=== PATIENT | female | born 1945 | race Caucasian/White ===

== ENCOUNTER 2017-06-13 23:40 | Emergency (ER) | payer OTHER, MEDICARE ==
[~2017-06-13] VITALS: Ht 154.9 cm; Wt 96.3 kg
[~2017-06-13 23:40] MED LIST: ALLOPURINOL100 MG PO; AMLODIPINE BESY10 MG PO; ASPIRIN325 MG PO; CARDURA1 M1 PO; CLOPIDOGREL75 MG PO; DOXAZOSIN MESYLA2 MG PO; FERROUS SULFAT325 MG PO; FUROSEMIDE20 MG PO; FUROSEMIDE40 MG PO; IRON325 MG PO; LASIX40 MG PO; LIPITOR40 MG PO; LISINOPRIL10 MG PO; LISINOPRIL20 MG PO; LOPRESSOR50 MG PO; METHOCARBAMOL500 MG PO; METOPROLOL SUCC25 MG PO; NAPROXEN500 MG PO; NEXIUM40 MG PO; NITROSTAT0.4 MG SL; PREDNISONE20 MG PO; STOOL SOFTENER100 M1 PO; TOPROL XL25 MG PO; TRADJENTA5 MG PO
[2017-06-13 23:59] LABS: HEMATOCRIT 30.6 % (36.0-46.0); MCH 29.9 PG (29.0-34.0); MCHC 32.7 G/DL (30.0-36.0); MCV 91.6 FL (83-99); PLATELET COUNT 195 K/uL (156-360); RBC DIS.WIDTH-SD 50.1 % (39-53); RED BLOOD COUNT 3.34 M/uL (3.80-5.20); WHITE BLOOD COUNT 9.3 K/uL (4.1-10.2)
[2017-06-14 00:12] LABS: ALBUMIN 3.9 g/dL (3.2-4.8); CHLORIDE 106 mEq/L (99-109); POTASSIUM 4.1 mEq/L (3.7-5.4); SODIUM 142 mEq/L (136-147)
[2017-06-14 00:15] LABS: GLUCOSE 127 mg/dL (70-99)
[2017-06-14 00:16] LABS: TOTAL BILIRUBIN 0.5 mg/dL (0.0-1.0)
[2017-06-14 00:18] LABS: ALKALINE PHOSPHATASE 87 IU/L (3-129)
[2017-06-14 00:19] LABS: CREATININE 1.4 mg/dL (0.6-1.3); GFR ESTIMATE (CALCULATED) 39 mL/min/; UREA NITROGEN (BUN) 28 mg/dL (9-23)
[2017-06-14 00:20] LABS: AST (GOT) 18 IU/L (2-34)
[2017-06-14 00:21] LABS: ALT (GPT) 14 IU/L (3-49)
[2017-06-14 00:26] LABS: APPEARANCE SL.HAZY ((CLEAR)); BILIRUBIN NEGATIVE; BLOOD MODERATE; COLOR YELLOW ((YELLOW)); GLUCOSE (STRIP) NEGATIVE; KETONES NEGATIVE; LEUKOCYTES LARGE; NITRITE NEGATIVE; PROTEIN (STRIP) 30; SPECIFIC GRAVITY 1.017 (1.000-1.030)
[2017-06-14 00:59] LABS: BACTERIA 2+ /HPF; EPITHELIAL CELLS 2+ /HPF; MUCUS RARE /LPF; RED BLOOD CELLS 15-20 /HPF (0-5); UCUL ADDED? YES; WHITE BLOOD CELLS TNTC /HPF (0-5)
[2017-06-14] MEDS ORDERED: KEFLEX500 MG PO (04:05)
[2017-06-14] MEDS ORDERED: ZOFRAN4 MG PO (04:05)
[2017-06-14] MEDS ORDERED: PERCOCET 5/31 TABLET PO (04:05)
[2017-06-14 04:38] VITALS: BP 115/41
== END 2017-06-14 04:40 | disposition home or self-care (01) ==
LOC: EME 23:40
DX: N13.6 Pyonephrosis (principal); I13.0 Hypertensive heart and chronic kidney disease with heart failure and stage 1 through stage 4 chronic kidney disease, or unspecified chronic kidney disease; E11.22 Type 2 diabetes mellitus with diabetic chronic kidney disease; N18.3 Chronic kidney disease, stage 3 (moderate); I50.9 Heart failure, unspecified; K21.9 Gastro-esophageal reflux disease without esophagitis; J45.909 Unspecified asthma, uncomplicated; Z79.82 Long term (current) use of aspirin; Z87.891 Personal history of nicotine dependence; Z85.9 Personal history of malignant neoplasm, unspecified; Z91.040 Latex allergy status
CPT/HCPCS: 74176; 80053; 81003; 85027; 87086; 99281; 99284; J0696

== ENCOUNTER 2017-07-01 03:25 | Observation (INO) | payer OTHER, MEDICARE ==
[~2017-07-01] VITALS: Ht 157.5 cm; Wt 93.3 kg
[~2017-07-01 03:25] MED LIST changes: +KEFLEX500 MG PO; +PERCOCET 5/31 TABLET PO; +ZOFRAN4 MG PO
[2017-07-01 04:06] LABS: HEMATOCRIT 28.5 % (36.0-46.0); HEMOGLOBIN 9.4 G/DL (11.9-15.5); MCH 29.1 PG (29.0-34.0); MCV 88.2 FL (83-99); PLATELET COUNT 213 K/uL (156-360); RBC DIS.WIDTH-CV 14.4 % (11.8-14.6); RBC DIS.WIDTH-SD 46.6 % (39-53); RED BLOOD COUNT 3.23 M/uL (3.80-5.20); WHITE BLOOD COUNT 11.9 K/uL (4.1-10.2)
[2017-07-01 04:18] LABS: ALBUMIN 3.3 g/dL (3.2-4.8)
[2017-07-01 04:19] LABS: CHLORIDE 102 mEq/L (99-109); POTASSIUM 3.3 mEq/L (3.7-5.4); SODIUM 139 mEq/L (136-147)
[2017-07-01 04:21] LABS: GLUCOSE 73 mg/dL (70-99); TOTAL PROTEIN 7.4 g/dL (6.4-8.3)
[2017-07-01 04:23] LABS: TOTAL BILIRUBIN 0.8 mg/dL (0.0-1.0)
[2017-07-01 04:24] LABS: ALKALINE PHOSPHATASE 70 IU/L (3-129)
[2017-07-01 04:25] LABS: CREATININE 1.2 mg/dL (0.6-1.3); GFR ESTIMATE (CALCULATED) 47 mL/min/
[2017-07-01 04:26] LABS: AST (GOT) 11 IU/L (2-34); UREA NITROGEN (BUN) 15 mg/dL (9-23)
[2017-07-01 04:27] LABS: ALT (GPT) 8 IU/L (3-49)
[2017-07-01 04:28] LABS: LIPASE 38 U/L (1.0-51.0)
[2017-07-01 04:29] LABS: TROP-I INTERPRETATION NEGATIVE; TROPONIN-I 0.01 ng/mL (0.0-0.30)
[2017-07-01 08:56] VITALS: BP 133/56
[2017-07-01] MEDS ORDERED: PANTOPRAZOLE SO40 MG PO (09:10)
[2017-07-01] MEDS ORDERED: GLIMEPIRIDE2 MG PO (09:11)
[2017-07-01 09:33] LABS: HDL CHOLESTEROL 27 MG/DL (Desirable>=50); LDL CHOLESTEROL 37 mg/dL (Desirable<100); NON-HDL CHOLESTEROL 47 mg/dL (Desirable<160); TOTAL CHOLESTEROL 74 mg/dL (Desirable<200); TRIGLYCERIDES 48 MG/DL (Normal: <150)
[2017-07-01 10:05] LABS: TROP-I INTERPRETATION NEGATIVE; TROPONIN-I 0.01 ng/mL (0.0-0.30)
[2017-07-01 11:41] VITALS: BP 172/67
[2017-07-01 15:32] LABS: TROP-I INTERPRETATION NEGATIVE; TROPONIN-I < 0.01 ng/mL (0.0-0.30)
== END 2017-07-01 15:30 | disposition home or self-care (01) ==
LOC: EME → EDBD 03:25 → EME 03:25 → EDOF 07:25 → ENRESERV 07:27 → 4SOUTH 08:36
PROVIDERS: Emergency Medicine; Hospitalist
DX: R07.9 Chest pain, unspecified (principal); I25.10 Atherosclerotic heart disease of native coronary artery without angina pectoris; Z95.5 Presence of coronary angioplasty implant and graft; I48.91 Unspecified atrial fibrillation; D64.9 Anemia, unspecified; Z79.01 Long term (current) use of anticoagulants; I10 Essential (primary) hypertension; E11.9 Type 2 diabetes mellitus without complications; E78.5 Hyperlipidemia, unspecified; Z79.02 Long term (current) use of antithrombotics/antiplatelets; Z79.82 Long term (current) use of aspirin; Z79.84 Long term (current) use of oral hypoglycemic drugs; Z91.040 Latex allergy status; Z87.891 Personal history of nicotine dependence
CPT/HCPCS: 71045; 71275; 80053; 80061; 83690; 83880; 84484; 85027; 85379; 93005; 94640; 99281; 99285; G0378; J1940; S0028

== ENCOUNTER 2017-08-27 21:03 | Emergency (ER) | payer OTHER, MEDICARE ==
[~2017-08-27] VITALS: Ht 154.9 cm; Wt 91.0 kg
[~2017-08-27 21:03] MED LIST changes: +GLIMEPIRIDE2 MG PO; +PANTOPRAZOLE SO40 MG PO
[2017-08-27 23:03] LABS: HEMATOCRIT 30.1 % (36.0-46.0); HEMOGLOBIN 9.5 G/DL (11.9-15.5); MCH 28.2 PG (29.0-34.0); MCHC 31.6 G/DL (30.0-36.0); MCV 89.3 FL (83-99); PLATELET COUNT 215 K/uL (156-360); RBC DIS.WIDTH-CV 15.9 % (11.8-14.6); RBC DIS.WIDTH-SD 51.7 % (39-53); RED BLOOD COUNT 3.37 M/uL (3.80-5.20)
[2017-08-27 23:40] LABS: CHLORIDE 105 mEq/L (99-109); POTASSIUM 3.7 mEq/L (3.7-5.4); SODIUM 142 mEq/L (136-147)
[2017-08-27 23:42] LABS: GLUCOSE 88 mg/dL (70-99)
[2017-08-27 23:46] LABS: CREATININE 1.2 mg/dL (0.6-1.3); GFR ESTIMATE (CALCULATED) 47 mL/min/
[2017-08-27 23:47] LABS: UREA NITROGEN (BUN) 21 mg/dL (9-23)
[2017-08-27] MEDS ORDERED: ULTRAM50 MG PO (23:51)
[2017-08-28 00:11] VITALS: BP 156/54
== END 2017-08-28 00:18 | disposition home or self-care (01) ==
LOC: EME 21:03
PROVIDERS: Emergency Medicine
DX: R25.2 Cramp and spasm (principal); D64.9 Anemia, unspecified; I12.9 Hypertensive chronic kidney disease with stage 1 through stage 4 chronic kidney disease, or unspecified chronic kidney disease; N18.3 Chronic kidney disease, stage 3 (moderate); E11.22 Type 2 diabetes mellitus with diabetic chronic kidney disease; J45.909 Unspecified asthma, uncomplicated; K21.9 Gastro-esophageal reflux disease without esophagitis; I50.9 Heart failure, unspecified; Z79.84 Long term (current) use of oral hypoglycemic drugs; Z79.82 Long term (current) use of aspirin; Z87.891 Personal history of nicotine dependence; Z85.9 Personal history of malignant neoplasm, unspecified; Z91.040 Latex allergy status
CPT/HCPCS: 80048; 85027; 93971; 99281; 99284